=== PATIENT | male | born 1945 | race Caucasian/White ===

== ENCOUNTER 2020-06-08 18:16 | Observation (INO) | payer MEDICARE, OTHER ==
[2020-06-08] MEDS ORDERED: Aspirin 325 MG TAB PO SCH (21:30)
[2020-06-08 22:30] LABS: CKMB 3.4 ng/mL (0-6.6)
[2020-06-08 23:33] VITALS: BMI 16.2
[2020-06-09] MEDS ORDERED: Dextrose 5% in Water 1,000 ML IV PRN (00:14)
[2020-06-09] MEDS ORDERED: Acetaminophen 500 MG TAB PO PRN (00:14)
[2020-06-09] MEDS ORDERED: HumaLOG 300 UNITS/3 ML VIAL SC PRN ×2 (00:14)
[2020-06-09] MEDS ORDERED: Ibuprofen 200 MG TAB PO PRN (00:14)
[2020-06-09] MEDS ORDERED: Ondansetron PF 4 MG/2 ML Vial IVP PRN (00:14)
[2020-06-09] MEDS ORDERED: Labetalol HCl 100 MG/20 ML VIAL SLOW IVP PRN (00:14)
[2020-06-09] MEDS ORDERED: Ondansetron ODT 4 MG TAB PO PRN (00:14)
[2020-06-09] MEDS ORDERED: Dextrose 50% Abboject 50 ML SYRINGE SLOW IVP PRN (00:14)
--- NOTE | 2020-06-09 01:38 | HP ---
PRIMARY CARE PROVIDER: Gutierrez Francisco MD CHIEF COMPLAINT: Mechanical fall with chest pain. HISTORY OF PRESENT ILLNESS: This is a 75-year-old male, who presents to [facility] Emergency Department in transfer from [facility] after apparently falling off the back of his truck tool box while working out in the field. The patient states he was attempting to cut some limbs and got up on the back of his truck when he lost his footing and fell to the ground. The patient had initially complained of chest, knee, and back pain, but denied any loss of consciousness or lacerations. Review of the electronic medical record from [facility] had a question of chest pain prior to the fall; however, the patient does not endorse this. The patient does complain of some chest and back discomfort currently, but overall says he has no specific symptoms other than the Zambrano catheter that was inserted is irritating him. The patient denied any known history of coronary artery disease and states he takes aspirin on a daily basis. 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 The patient denied any shortness of breath, fever, cough, or congestion. The patient does admit to using smokeless tobacco for many years. In the emergency room, the patient underwent extensive evaluation including multiple imaging studies showing no acute process. Troponin I was initially negative x2 with the third value increasing to 0.066. The patient was referred to the Hospitalist Service for further evaluation. PAST MEDICAL HISTORY: 1. Hypertension. 2. Hyperlipidemia. 3. Diabetes mellitus type 2. 4. Smokeless tobacco use. 5. History of colon cancer. 6. Gastroesophageal reflux disease. 7. Cataracts. PAST SURGICAL HISTORY: 1. Status post hernia repair. 2. Status post bowel resection secondary to colon cancer. 3. Status post bilateral cataract removal. CURRENT MEDICATIONS: 1. Lisinopril 2.5 mg p.o. daily. 2. Enteric-coated aspirin 81 mg p.o. daily. 3. Omeprazole 40 mg p.o. daily. 4. Atorvastatin 40 mg p.o. daily. 5. Metformin 1000 mg p.o. b.i.d. 6. Vitamin D3 2000 units p.o. daily. ALLERGIES: TO PENICILLIN. FAMILY HISTORY: Positive for hypertension. SOCIAL HISTORY: Resides in [place], [place]. Uses smokeless tobacco daily. No alcohol or illicit drug use. Functional of all activities of daily living. REVIEW OF SYSTEMS: CONSTITUTIONAL: Negative for weight loss or gain, ability to conduct usual activities. SKIN: Negative for rash, itching. EYES: Negative for double vision, pain. ENT/MOUTH: Negative for nose bleeding, neck stiffness, pain, tenderness. CARDIOVASCULAR: Negative for palpitations, dyspnea on exertion, orthopnea. RESPIRATORY: Negative for shortness of breath, wheezing, cough, hemoptysis, fever or night sweats. GASTROINTESTINAL: Negative for poor appetite, abdominal pain, heartburn, nausea, vomiting, constipation, or diarrhea. GENITOURINARY: Negative for urgency, frequency, dysuria, nocturia. MUSCULOSKELETAL: Negative for pain, swelling. NEUROLOGIC/PSYCHIATRIC: Negative for anxiety, depression. ALLERGY/IMMUNOLOGIC: Negative for skin rash, bleeding tendency. Otherwise negative except as stated per HPI. PHYSICAL EXAMINATION: VITAL SIGNS: Blood pressure 153/85, pulse 83, respiratory rate 18, temperature 99.1 degrees Fahrenheit, O2 saturation 100% on room air. GENERAL APPEARANCE: This is a 75-year-old male, alert and oriented x3, pleasant, responsive, in no acute distress. HEENT: Pupils are equal, round, reactive to light and accommodation. Extraocular muscles are intact. Scalp atraumatic. Nares patent. OP is clear. Nicotine staining to all teeth. NECK: Supple. No cervical adenopathy. No thyromegaly. No carotid bruits. No JVD appreciated. Cervical spine with full active and passive range of motion. No meningeal signs noted. CHEST: Lungs are clear to auscultation bilaterally. CARDIOVASCULAR: S1, S2 without noted murmur, rub, or gallop. ABDOMEN: Flat, soft, nontender, and nondistended. Bowel sounds are positive in all 4 quadrants. There is no hepatosplenomegaly. No abdominal bruits. No rebound or guarding appreciated. EXTREMITIES: Warm and dry with fair turgor. Quarter-sized ecchymosis/contusion of the right patellar region. No asymmetric edema noted. Pulses palpable distally at the dorsalis pedis, posterior tibial, and popliteal arteries bilaterally. Capillary refill less than 2 seconds. NEUROLOGIC: Cranial nerves II through XII are grossly intact. No focal or lateralizing signs appreciated. : Zambrano catheter in place with clear leyla urine. PERTINENT LABORATORY AND X-RAY FINDINGS: Basic metabolic profile within normal limits. Lactic acid level 1.6, calcium 9.0. LFTs within normal limits. Troponin I ranged between 0.010 to 0.066. TSH 1.55. CBC showed a white blood cell count of 10.8, hemoglobin 12, hematocrit 36, platelet count 219 with 78% neutrophils. Urinalysis showed trace blood with 4 to 6 rbc's per high-power field. EKG dated 06/08/2020, by my interpretation shows sinus mechanism, heart rates in the 80s. Normal R-wave progression noted in the precordial leads. Normal axis. No acute ST-T wave changes appreciated. CT brain/chest/abdomen/pelvis/C-spine all negative. ASSESSMENT AND PLAN: 1. Chest pain. The patient will be observed on the telemetry unit. Mild elevation of troponin I. We will continue serial cardiac biomarkers to monitor the overall trend. Proceed with Cardiolite stress testing in the a.m. to rule out underlying ischemia. Continue aspirin 325 mg daily. Check fasting lipid profile in the a.m. Suspect component of the patient's chest pain related to fall. 2. Urinary retention. Status post Zambrano catheter placement in the emergency room. Suspect, will remove Zambrano catheter in the a.m. 3. Diabetes mellitus type 2. Insulin sliding scale for reflexive coverage. Hold metformin pending Cardiolite stress testing. Serial Accu-Cheks before meals and at bedtime. ADA diet when tolerating p.o. intake. 4. Hypertension. Resume home blood pressure regimen and monitor clinical response. 5. Prophylaxis. SCDs while in bed. Pepcid 20 mg p.o. b.i.d. CODE STATUS: Full. Surrogate medical decision maker is the patient's sister. Job ID: [id number] MTDD
[2020-06-09 04:56] LABS: #Eosinphils 0.1 thou/uL (0.0-0.7); #Lymphocytes 1.5 thou/uL (1.20-3.40); #Monocytes 0.8 thou/uL (0.11-0.59); #Neutrophils 4.7 thou/uL (1.40-6.50); %Basophils 0.5 % (0.0-1.0); %Lymphocytes 21.2 % (21.0-51.0); %Monocytes 11.3 % (0.0-10.0); %Neutrophils 66.1 % (42.0-75.0); Hemoglobin 11.2 g/dL (14.0-18.0); Mean Corpuscular Hemoglobin 30.7 pg (27.0-31.0); Mean Corpuscular Volume 96.1 fL (78.0-98.0); Mean Platelet Volume 10.8 fL (7.4-10.4); Platelet Count 187 thou/uL (130-400); RBC Distribution Width 12.2 % (11.5-14.5); Red Blood Cell (RBC) Count 3.64 mill/uL (4.70-6.10); White Blood Cell (WBC) Count 7.1 thou/uL (4.8-10.8)
[2020-06-09 05:23] LABS: ALT (SGPT) 14 U/L (8-55); AST (SGOT) 14 U/L (5-34); Albumin 3.4 g/dL (3.4-4.8); Alkaline Phosphatase 115 U/L (40-110); Anion Gap 13 mmol/L (10-20); BUN (Urea Nitrogen) 13 mg/dL (8.4-25.7); Bilirubin, Total 0.3 mg/dL (0.2-1.2); Calc. Creatinine Clearance 59 mL/min (70-130); Calcium 8.8 mg/dL (7.8-10.44); Carbon Dioxide 27 mmol/L (23-31); Chloride 107 mmol/L (98-107); Cholesterol 112 mg/dl (< 200 Desired); Estimated GFR-MDRD Greater than 90; Globulin 2.4 g/dL (2.4-3.5); Glucose 177 mg/dL (83-110); HDL Cholesterol 56 mg/dL (>60 Neg Risk); LDL Cholesterol, Calculated 49 mg/dL; Potassium 3.8 mmol/L (3.5-5.1); Protein, Total 5.8 g/dL (5.8-8.1); Sodium 143 mmol/L (136-145); Triglycerides 34 mg/dL (Less than 150)
[2020-06-09] MEDS ORDERED: ADENOSINE 60 MG/20 ML VIAL ONE (08:32)
[2020-06-09] MEDS ORDERED: Famotidine 20 MG TAB PO SCH (09:00)
[2020-06-09] MEDS ORDERED: Cholecalciferol 1,000 UNITS (25 MCG) TAB PO SCH (09:00)
[2020-06-09] MEDS ORDERED: Aspirin 325 mg Enteric Coated Tablet PO SCH (09:00)
[2020-06-09] MEDS ORDERED: Lisinopril 2.5 MG TAB PO SCH (09:00)
[2020-06-09] MEDS ORDERED: Atorvastatin Calcium 40 MG TAB PO SCH (09:00)
--- NOTE | 2020-06-09 12:02 | NM ---
EXAM: NM Cardiac Stress W EF WF PROVIDED CLINICAL HISTORY: Chest pain. COMPARISON: 01/29/2011 FINDINGS: This examination was performed as a pharmacologic myocardial perfusion stress test after the administ ration of adenosine. There is no significant reversible defect seen between the stress and resting acquisitions. Gated chapis ges demonstrate minimal hypokinesis at the septum but otherwise normal wall motion and wall thickening. Calculated left ventricular ejection fraction is 71%. Calculated left ventricular ejectio n fraction on prior study in 2010 was 62%. IMPRESSION: 1. Normal myocardial perfusion study without evidence of a reversible defect seen to suggest ischemia . 2. Calculated LVEF of 71%.
[2020-06-09 13:42] LABS: Bacteria/HPF None Seen HPF (None Seen); Bilirubin Negative (Negative); Blood, Urine 1+ (Negative); Calcium Oxalate Crystals 3+ HPF (None Seen); Clarity Turbid (Clear); Glucose, Urine (Dipstick) 500 mg/dL (Negative); Ketone, Urine Negative (Negative); Leukocyte 75 Leu/uL (Negative); Nitrite Negative (Negative); Protein, Urine (Dipstick) 200 mg/dL (Neg-Trace); RBC/HPF 21-50 HPF (0-3); Specific Gravity, Urine 1.027 (1.002-1.036); Squamous Epithelial None Seen HPF (0-3); WBC/HPF 21-50 HPF (0-3)
[2020-06-09 13:44] LABS: Urine Culture Reflex Yes Yes
[2020-06-09] MEDS ORDERED: Ciprofloxacin 500 MG TAB PO SCH ×2 (15:00→20:00)
[2020-06-09 15:06] LABS: SARS-CoV-2 MS2 Positive; SARS-CoV-2 N Gene Negative; SARS-CoV-2 S Gene Negative; SARS-CoV-2 by NAA Not Detected (NotDetected); SARS-CoV-2 orf1ab Negative
[2020-06-09 15:33] VITALS: BP 144/72; TEMP 97.9
--- NOTE | 2020-06-10 12:05 | DIS ---
DATE OF ADMISSION: 06/08/2020 DATE OF DISCHARGE: 06/09/2020 DISCHARGE DIAGNOSES: 1. Chest pain, likely secondary to musculoskeletal pain from a fall. 2. Anemia. 3. Type 2 [id number] myocardial infarction. CONSULTATIONS: None. PROCEDURES: None. BRIEF HPI: This is a 75-year-old male, who presented as a transfer from [place] [facility] after falling off the back of his truck. He complained of some chest pain, knee pain, and back pain. The pain was persistent until the patient came to the emergency room and then resolved. The patient's third troponin had increased to 0.066, so the patient was transferred here for hospitalist service. HOSPITAL COURSE: Chest pain: The patient underwent nuclear stress test, which was normal. He had an echocardiogram done due to elevated troponins, which was normal. The patient's pain resolved. He ambulated without any chest pain. He should follow up with his PCP for further workup. History of urinary retention: The patient states that he has had recurrent problems with urinary retention. While in the hospital, a Zambrano catheter ended up being placed secondary to this. UA was sent, which appeared to show turbid urine with 75 leukocyte esterase and 21-50 white blood cells. Urine culture was normal. The patient was started on ciprofloxacin and was prescribed a 7-day course of antibiotics. He was also discharged with Flomax. The patient did not want to have the Zambrano catheter removed for a voiding trial due to the amount of pain he experiences while placing it. He elected to be discharged with a Zambrano catheter. He was advised him to follow up with the urologist in [place] of his choice. DISCHARGE PHYSICAL EXAMINATION: VITAL SIGNS: Temperature 97.9, heart rate 70, respiratory rate 16, O2 saturation 98% on room air, and blood pressure 144/72. GENERAL: The patient is alert, awake, oriented x3. CVS: Regular rate and rhythm with no murmurs, rubs, or gallops. LUNGS: Clear to auscultation bilaterally. ABDOMEN: Positive bowel sounds, soft, nontender, nondistended. EXTREMITIES: No edema. : Zambrano catheter in place. LABORATORY DATA: CBC 06/09: White count 7.1, hemoglobin 11.2, hematocrit 34.9, platelet count 187. BMP 06/09: Normal. Troponin I: Peaked at 0.066. Lipid panel 06/09: Total cholesterol 112, LDL 49, HDL 56. UA 06/09: Turbid urine, 200 protein, 75 leukocyte esterase, 21-50 white blood cells, 3+ calcium oxalate crystals. COVID PCR serology 06/09: Negative. IMAGING: Nuclear stress test 06/09: Unremarkable. Echo 06/09: EF 55% to 60%. Mild TR. Otherwise, unremarkable. DISCHARGE CONDITION: Stable. ACTIVITY: As tolerated. DIET: Heart healthy diet. DISCHARGE MEDICATIONS: 1. Cipro 500 mg p.o. b.i.d. 2. Flomax 0.4 mg p.o. daily. All other home medications were resumed. Please refer to discharge worksheet. DISCHARGE INSTRUCTIONS: The patient to follow up with PCP in a week. He should follow up with his urologist of his choice and consider voiding trial with a Zambrano catheter. Also consider repeat CBC to further work up anemia. Job ID: [id number] MTDD
== END 2020-06-09 16:11 | disposition home or self-care (01) ==
LOC: 2SW 18:16
PROVIDERS: ADMIT Student in an Organized Health Care Education/Training Program; ATTEND Student in an Organized Health Care Education/Training Program
DX: R07.9 Chest pain, unspecified (principal); I21.A1 Myocardial infarction type 2; D64.9 Anemia, unspecified; I10 Essential (primary) hypertension; E11.9 Type 2 diabetes mellitus without complications; E78.5 Hyperlipidemia, unspecified; F17.290 Nicotine dependence, other tobacco product, uncomplicated; Z79.84 Long term (current) use of oral hypoglycemic drugs; Z79.899 Other long term (current) drug therapy; Z85.038 Personal history of other malignant neoplasm of large intestine; Z88.0 Allergy status to penicillin; Z20.828 Contact with and (suspected) exposure to other viral communicable diseases; V58.4XXA Person boarding or alighting a pick-up truck or van injured in noncollision transport accident, initial encounter
CPT/HCPCS: 78452; 80053; 80061; 81001; 82553; 82962; 84484 ×2; 85025; 87086; 93017; 93306; 94760; A9500; G0378; U0003; 36415; 36416; 87635; J0153

== ENCOUNTER 2020-08-14 07:23 | Outpatient (CLI) | payer MEDICARE, OTHER ==
[2020-08-14 13:12] LABS: Bilirubin Neg (Negative); Blood, Urine 10 (Negative); Clarity Clear (Clear); Glucose, Urine (Dipstick) Normal (Negative); Ketone, Urine 50 mg/dL (Negative); Leukocyte 100 (Negative); Nitrite Negative (Negative); Protein, Urine (Dipstick) 30 mg/dl (Neg-Trace); Specific Gravity, Urine 1.025 (1.002-1.036); Urobilinogen Normal mg/dL (Less than 2)
[2020-08-14 13:19] LABS: Hemoglobin 11.7 g/dL (14.0-18.0); Mean Corpuscular HGB CONC 31.8 G/DL (32.0-36.0); Mean Corpuscular Hemoglobin 29.5 PG (27.0-33.0); Mean Corpuscular Volume 92.7 fl (80.0-100.0); Mean Platelet Volume 13.2 fl (7.4-10.4); Platelet Count 240 10x3/uL (130-400); RBC Distribution Width 12.8 % (11.5-14.5); Red Blood Cell (RBC) Count 3.97 10x6/uL (4.40-5.80); White Blood Cell (WBC) Count 6.3 10x3/uL (4.5-11.0)
[2020-08-14 13:24] LABS: Anion Gap 18 mmol/L (10-20); BUN (Urea Nitrogen) 19 mg/dL (8.4-25.7); Calc. Creatinine Clearance 0 mL/min (70-130); Calcium 9.1 mg/dL (7.8-10.44); Carbon Dioxide 25 mmol/L (23-31); Chloride 101 mmol/L (98-107); Glucose 169 mg/dL (83-110); Sodium 140 mmol/L (136-145)
[2020-08-14 13:38] LABS: RBC/HPF 0-3 HPF (0-3)
[2020-08-14 13:39] LABS: Bacteria/HPF None Seen HPF (None Seen); Mucous/LPF 1+ LPF (<2+); Squamous Epithelial 0-3 HPF (0-3)
[2020-08-14 13:40] LABS: Calcium Oxalate Crystals Rare HPF (None Seen); PTT 30.2 sec (22.0-33.0); Prothrombin Time 10.7 sec (9.5-12.1)
--- NOTE | 2020-08-14 16:18 | EKG ---
Test Reason : Blood Pressure : / mmHG Vent. Rate : 085 BPM Atrial Rate : 085 BPM P-R Int : 136 ms QRS Dur : 076 ms QT Int : 360 ms P-R-T Axes : 087 077 075 degrees QTc Int : 428 ms Normal sinus rhythm Possible Left atrial enlargement Borderline ECG No previous ECGs available Confirmed by DR. Ann-Marie BALLARD ([id number]) on 08/14/2020 4:18:04 PM Referred By: Nico LEROY Confirmed By:DR. Ann-Marie BALLARD
[2020-08-14 22:26] LABS: SARS-CoV-2 MS2 Positive; SARS-CoV-2 N Gene Negative; SARS-CoV-2 S Gene Negative; SARS-CoV-2 by NAA Not Detected (NotDetected); SARS-CoV-2 orf1ab Negative
== END 2020-08-14 07:24 | disposition home or self-care (01) ==
LOC: LABBT 07:23
PROVIDERS: ATTEND Urology
DX: Z01.818 Encounter for other preprocedural examination (principal); Z01.812 Encounter for preprocedural laboratory examination; Z20.828 Contact with and (suspected) exposure to other viral communicable diseases; N40.1 Benign prostatic hyperplasia with lower urinary tract symptoms; E11.9 Type 2 diabetes mellitus without complications; R39.14 Feeling of incomplete bladder emptying; R31.29 Other microscopic hematuria; R81 Glycosuria; R80.9 Proteinuria, unspecified; I21.4 Non-ST elevation (NSTEMI) myocardial infarction; Z87.898 Personal history of other specified conditions
CPT/HCPCS: 80048; 81001; 85027; 85610; 85730; 87086; 93005; U0003; 87635; 93010

== ENCOUNTER 2020-08-19 06:01 | Day surgery (SDC) | payer MEDICARE, OTHER ==
[2020-08-19] MEDS ORDERED: Levofloxacin 500 mg/D5W 100 ml Premix Bag ONE (06:53)
[2020-08-19] MEDS ORDERED: Fentanyl 100 MCG/2 ML VIAL ONE (07:10)
[2020-08-19] MEDS ORDERED: HYDROcodone/Acetaminophen 5/325 mg Tablet ONE (08:51)
[2020-08-19] MEDS ORDERED: PROPOFOL 200 MG/20 ML VIAL ONE (09:07)
[2020-08-19] MEDS ORDERED: Lidocaine 1% PF 5 ML VIAL ONE (09:07)
--- NOTE | 2020-08-19 09:33 | OP ---
DATE OF PROCEDURE: 08/19/2020 PREOPERATIVE DIAGNOSES: A 75-year-old male with: 1. History of urinary retention, PVR of 808 mL. 2. Benign prostatic hyperplasia with IPSS score of 26. POSTOPERATIVE DIAGNOSES: A 75-year-old male with: 1. History of urinary retention, PVR of 808 mL. 2. Benign prostatic hyperplasia with IPSS score of 26. PROCEDURES PERFORMED: 1. Cystoscopy. 2. UroLift implant x5. ANESTHESIA: TIVA. COMPLICATIONS: None apparent. ESTIMATED BLOOD LOSS: Minimal to none. DISPOSITION: To recovery room in stable condition. INDICATIONS FOR PROCEDURE AND HISTORY: Mr. Spann is a 75-year-old male, with history of recurrent urinary retention, largest PVR of 808 mL. He has been on dual medical therapy, Flomax b.i.d., and presents today for cystoscopy and UroLift. He underwent appropriate workup with cystoscopy, volume study in my office and presents for above. He has been fully informed regarding options of transurethral resection of prostate, UroLift. Risks and complications of the procedure were reviewed with him in detail including, but not limited to, bleeding; pain, infection, injury to adjacent organs, ureteral and bladder injury, stricture formation, possible escalating to more definitive treatment was discussed with him in detail. DESCRIPTION OF PROCEDURE: After an informed consent was signed, the patient was taken to the operating room and placed in a dorsal lithotomy position with the genital area prepped and draped in the usual surgical sterile fashion. A 21- Bulgarian cystoscope was utilized for cystoscopy, demonstrating severe bilobar hyperplasia of the prostate. There was no obvious intravesical median lobe; however, with retroflexion in my office, cystoscopy demonstrated protuberance of the bladder neck, consistent with trigonal elevation. The UOs are very close to the bladder neck and they were kept out of harm's way. Exam under anesthesia today demonstrated that he may have undergone previous TUR by previous urologist, Dr. Barrow, as his bladder neck demonstrated changes consistent with TUR. However, he does have obstructing lateral lobes. At this time, we transitioned to the UroLift device and cystoscope with a visual obturator. We placed a total of 3 implants on the left, 2 on the right lobe. At the end of the procedure, he had a nice anterior channel created. There was a small component of residual adenoma at the bladder neck protruding; however, this was not obstructing, and moreover, it was too close to the bladder neck for me to place a safe implant at this level as there was concern regarding bladder neck implant. In addition, with 5 implants, he has a wide anterior channel with an open bladder neck. An 18-Bulgarian 30 mL Zambrano catheter was placed, gravity tubing attached. I will monitor for degree of hematuria. Pending disposition, he will either be provided a voiding trial and discharged with an indwelling Zambrano. He is to continue his BPH medications, refill for Flomax provided, will see me tomorrow. Job ID: [id number] MTDD
[2020-08-19] MEDS ORDERED: Phenazopyridine HCl 100 MG TAB ONE (10:59)
== END 2020-08-19 14:00 | disposition home or self-care (01) ==
LOC: SDC 06:01
PROVIDERS: ATTEND Urology
PROC: 0T7D8DZ Dilation of Urethra with Intraluminal Device, Via Natural or Artificial Opening Endoscopic (ICD-10-PCS; principal; 2020-08-19)
DX: N40.1 Benign prostatic hyperplasia with lower urinary tract symptoms (principal); R33.8 Other retention of urine; R39.14 Feeling of incomplete bladder emptying; R31.29 Other microscopic hematuria; M19.90 Unspecified osteoarthritis, unspecified site; G89.29 Other chronic pain; E11.9 Type 2 diabetes mellitus without complications; I10 Essential (primary) hypertension; F03.90 Unspecified dementia, unspecified severity, without behavioral disturbance, psychotic disturbance, mood disturbance, and anxiety; I25.2 Old myocardial infarction; Z79.2 Long term (current) use of antibiotics; Z79.82 Long term (current) use of aspirin; Z79.84 Long term (current) use of oral hypoglycemic drugs; Z79.899 Other long term (current) drug therapy; Z88.0 Allergy status to penicillin
CPT/HCPCS: 82962; C1889; C9740; 36416; J1956; J2704; J3010

== ENCOUNTER 2021-01-21 11:48 | Outpatient (CLI) | payer MEDICARE, OTHER | END 2021-01-21 11:49 | disposition home or self-care (01) | LOC: LABBT 11:48 | PROVIDERS: ATTEND Urology | DX: Z01.818 Encounter for other preprocedural examination (principal); N40.1 Benign prostatic hyperplasia with lower urinary tract symptoms; E11.9 Type 2 diabetes mellitus without complications; R39.14 Feeling of incomplete bladder emptying; R31.29 Other microscopic hematuria; R80.9 Proteinuria, unspecified; R81 Glycosuria; I21.4 Non-ST elevation (NSTEMI) myocardial infarction; R30.0 Dysuria; Z20.822 Contact with and (suspected) exposure to COVID-19; Z87.898 Personal history of other specified conditions | CPT/HCPCS: 80048; 81001; 85027; 85610; 85730; 86850; 86900; 86901; 87086; 93005; U0003; U0005; 87635; 93010 ==

== ENCOUNTER 2021-01-25 05:59 | Inpatient (IN) | payer MEDICARE, OTHER ==
[2021-01-21 13:19] LABS: Bilirubin Neg (Negative); Blood, Urine 25 (Negative); Glucose, Urine (Dipstick) Normal (Negative); Ketone, Urine Negative (Negative); Leukocyte 500 (Negative); Nitrite Negative (Negative); Protein, Urine (Dipstick) 100 mg/dl (Neg-Trace); Urobilinogen Normal mg/dL (Less than 2)
[2021-01-21 13:27] LABS: Clarity Hazy (Clear)
[2021-01-21 13:28] LABS: RBC/HPF 0-3 HPF (0-3); Squamous Epithelial 0-3 HPF (0-3); WBC/HPF 21-50 HPF (0-3)
[2021-01-21 13:29] LABS: Bacteria/HPF Rare-Few HPF (None Seen)
[2021-01-21 13:42] LABS: Anion Gap 15 mmol/L (10-20); BUN (Urea Nitrogen) 10 mg/dL (8.4-25.7); Calc. Creatinine Clearance 0 mL/min (70-130); Calcium 9.2 mg/dL (7.8-10.44); Carbon Dioxide 25 mmol/L (23-31); Chloride 103 mmol/L (98-107); Glucose 102 mg/dL (83-110); Potassium 4.5 mmol/L (3.5-5.1); Sodium 138 mmol/L (136-145)
[2021-01-21 14:20] LABS: INR-International Normal Ratio 1.1; PTT 28.5 sec (22.0-33.0); Prothrombin Time 11.6 sec (9.5-12.1)
[2021-01-21 14:53] LABS: Hemoglobin 11.5 g/dL (13.5-17.5); Mean Corpuscular HGB CONC 31.4 g/dL (32.0-36.0); Mean Corpuscular Hemoglobin 29.3 pg (27.0-33.0); Mean Corpuscular Volume 93.1 fl (81.2-95.1); Platelet Count 207 10x3/uL (150-450); RBC Distribution Width 13.4 % (11.5-14.5); Red Blood Cell (RBC) Count 3.93 10x6/uL (4.32-5.72)
[2021-01-21 22:03] LABS: SARS-CoV-2 PCR by NAA Not Detected (NotDetected)
[2021-01-25] MEDS ORDERED: Levofloxacin 500 mg/D5W 100 ml Premix Bag ONE (07:36)
[2021-01-25] MEDS ORDERED: Fentanyl 100 MCG/2 ML VIAL ONE ×2 (10:07→12:27)
[2021-01-25] MEDS ORDERED: Ondansetron PF 4 MG/2 ML Vial ONE ×2 (10:19→13:26)
[2021-01-25] MEDS ORDERED: PHENYLEPHRINE-NS 100 MCG/ML 10 ML SYRINGE ONE (10:19)
[2021-01-25] MEDS ORDERED: Lidocaine 1% PF 5 ML VIAL ONE (10:19)
[2021-01-25] MEDS ORDERED: Dexamethasone 20 MG/5 ML VIAL ONE (10:19)
[2021-01-25] MEDS ORDERED: Glycopyrrolate 0.2 MG/ML 5 ML SYRINGE ONE (10:19)
[2021-01-25] MEDS ORDERED: Rocuronium Bromide 10 MG/ML (10ML VIAL) ONE (10:19)
[2021-01-25] MEDS ORDERED: PROPOFOL 200 MG/20 ML VIAL ONE (10:19)
[2021-01-25] MEDS ORDERED: ePHEDrine Sulfate 50 MG/10 ML VIAL ONE (10:19)
[2021-01-25] MEDS ORDERED: Iothalamate Meglumine 60% 50 ML VIAL FS ONE ×2 (11:10→11:18)
[2021-01-25] MEDS ORDERED: Dextrose 50% Abboject 50 ML SYRINGE SLOW IVP PRN (12:19)
[2021-01-25] MEDS ORDERED: hydrALAZINE 20 MG/ML VIAL SLOW IVP PRN (12:19)
[2021-01-25] MEDS ORDERED: HYDROcodone/Acetaminophen 5/325 mg Tablet PO PRN ×2 (12:19)
[2021-01-25] MEDS ORDERED: Dextrose 5% in Water 1,000 ML IV PRN (12:19)
[2021-01-25] MEDS ORDERED: Phenazopyridine HCl 97.5 MG TABLET PO PRN (12:19)
[2021-01-25] MEDS ORDERED: Bisacodyl 10 MG SUPP PR PRN (12:19)
[2021-01-25] MEDS ORDERED: Insulin Regular 300 UNITS/3 ML VIAL SC PRN (12:19)
[2021-01-25] MEDS ORDERED: Ondansetron PF 4 MG/2 ML Vial IVP PRN (12:19)
[2021-01-25] MEDS ORDERED: diphenhydrAMINE 50 MG/ML VIAL IVP PRN (12:19)
[2021-01-25] MEDS ORDERED: Morphine 4 MG/ML VIAL SLOW IVP PRN ×2 (12:19→12:45)
[2021-01-25] MEDS ORDERED: Tamsulosin HCl 0.4 MG CAP ONE (12:55)
[2021-01-25] MEDS ORDERED: Phenazopyridine HCl 100 MG TAB ONE (13:00)
[2021-01-25 13:05] LABS: #Basophils 0.1 thou/uL (0.0-0.2); #Eosinphils 0.2 thou/uL (0.0-0.7); #Lymphocytes 1.5 thou/uL (1.20-3.40); #Monocytes 0.2 thou/uL (0.11-0.59); #Neutrophils 6.8 thou/uL (1.40-6.50); %Basophils 0.6 % (0.0-1.0); %Eosinophils 1.8 % (0.0-10.0); %Lymphocytes 17.5 % (21.0-51.0); %Monocytes 2.3 % (0.0-10.0); %Neutrophils 77.9 % (42.0-75.0); Hemoglobin 10.7 g/dL (14.0-18.0); Mean Corpuscular HGB CONC 32.5 g/dL (32.0-36.0); Mean Corpuscular Hemoglobin 30.4 pg (27.0-31.0); Mean Corpuscular Volume 93.6 fL (78.0-98.0); Mean Platelet Volume 10.4 fL (7.4-10.4); Platelet Count 163 thou/uL (130-400); RBC Distribution Width 12.5 % (11.5-14.5); Red Blood Cell (RBC) Count 3.53 mill/uL (4.70-6.10); White Blood Cell (WBC) Count 8.7 thou/uL (4.8-10.8)
[2021-01-25 13:25] LABS: Anion Gap 13 mmol/L (10-20); BUN (Urea Nitrogen) 10 mg/dL (8.4-25.7); Calc. Creatinine Clearance 73 mL/min (70-130); Calcium 8.2 mg/dL (7.8-10.44); Carbon Dioxide 28 mmol/L (23-31); Chloride 102 mmol/L (98-107); Glucose 153 mg/dL (83-110); Potassium 3.6 mmol/L (3.5-5.1); Sodium 139 mmol/L (136-145)
[2021-01-25] MEDS: Sodium Chloride 0.9% 1,000 ML IV SCH (16:45)
[2021-01-25] MEDS: metFORMIN XR 500 MG TAB PO SCH (16:45)
[2021-01-25 16:57] VITALS: BMI 19.8
[2021-01-25] MEDS: Famotidine/PF 20 mg/2ml Vial SLOW IVP SCH (20:07)
[2021-01-25] MEDS: Docusate 100 MG CAP PO SCH (20:07)
[2021-01-25] MEDS: Atorvastatin Calcium 40 MG TAB PO SCH (20:11)
[2021-01-25] MEDS: Dutasteride 0.5 MG CAP PO SCH (20:11)
[2021-01-25] MEDS: Mag-Al 1200 mg/1200 mg/30 ML UDCUP PO PRN (22:35)
[2021-01-26] MEDS: Mag-Al 1200 mg/1200 mg/30 ML UDCUP PO PRN (05:12)
[2021-01-26] MEDS: Sodium Chloride 0.9% 1,000 ML IV SCH ×3 (05:30→23:00)
[2021-01-26 05:59] LABS: #Lymphocytes 1.1 thou/uL (1.20-3.40); #Monocytes 0.9 thou/uL (0.11-0.59); #Neutrophils 10.2 thou/uL (1.40-6.50); %Basophils 0.1 % (0.0-1.0); %Eosinophils 0.2 % (0.0-10.0); %Lymphocytes 9.3 % (21.0-51.0); %Monocytes 7.6 % (0.0-10.0); %Neutrophils 82.9 % (42.0-75.0); Hemoglobin 10.5 g/dL (14.0-18.0); Mean Corpuscular HGB CONC 32.5 g/dL (32.0-36.0); Mean Corpuscular Hemoglobin 30.3 pg (27.0-31.0); Mean Corpuscular Volume 93.2 fL (78.0-98.0); Mean Platelet Volume 11.5 fL (7.4-10.4); Platelet Count 171 thou/uL (130-400); RBC Distribution Width 12.6 % (11.5-14.5); Red Blood Cell (RBC) Count 3.48 mill/uL (4.70-6.10); White Blood Cell (WBC) Count 12.3 thou/uL (4.8-10.8)
[2021-01-26 06:08] LABS: Anion Gap 18 mmol/L (10-20); BUN (Urea Nitrogen) 13 mg/dL (8.4-25.7); Calc. Creatinine Clearance 69 mL/min (70-130); Calcium 8.1 mg/dL (7.8-10.44); Carbon Dioxide 23 mmol/L (23-31); Chloride 98 mmol/L (98-107); Glucose 129 mg/dL (83-110); Potassium 4.2 mmol/L (3.5-5.1); Sodium 135 mmol/L (136-145)
[2021-01-26 06:20] LABS: Troponin I 0.016 ng/mL (< 0.028)
[2021-01-26] MEDS: metFORMIN XR 500 MG TAB PO SCH ×2 (08:39→16:32)
[2021-01-26] MEDS: Aspirin 81 mg Enteric Coated Tablet PO SCH (08:39)
[2021-01-26] MEDS: Multivit, Therapeutic 1 TAB PO SCH (08:39)
[2021-01-26] MEDS: Docusate 100 MG CAP PO SCH ×2 (08:40→20:45)
[2021-01-26] MEDS: Cholecalciferol 1,000 UNITS (25 MCG) TAB PO SCH (08:40)
[2021-01-26] MEDS: Famotidine/PF 20 mg/2ml Vial SLOW IVP SCH ×2 (08:40→20:45)
[2021-01-26] MEDS ORDERED: Tamsulosin HCl 0.4 MG CAP PO SCH ×2 (09:00)
[2021-01-26 09:58] LABS: Troponin I 0.015 ng/mL (< 0.028)
[2021-01-26] MEDS: Dutasteride 0.5 MG CAP PO SCH (20:45)
[2021-01-26] MEDS: Atorvastatin Calcium 40 MG TAB PO SCH (20:45)
[2021-01-27] MEDS: Nitroglycerin 0.4 MG TAB (25 Tab Bottle) SL PRN ×2 (07:23→07:30)
[2021-01-27] MEDS: metFORMIN XR 500 MG TAB PO SCH ×2 (07:32→16:31)
[2021-01-27 07:58] LABS: Hemoglobin 10.2 g/dL (14.0-18.0); Mean Corpuscular HGB CONC 31.9 g/dL (32.0-36.0); Mean Corpuscular Hemoglobin 29.7 pg (27.0-31.0); Mean Corpuscular Volume 93.1 fL (78.0-98.0); Mean Platelet Volume 10.6 fL (7.4-10.4); Platelet Count 147 thou/uL (130-400); RBC Distribution Width 12.6 % (11.5-14.5); Red Blood Cell (RBC) Count 3.44 mill/uL (4.70-6.10)
[2021-01-27 08:12] LABS: Anion Gap 10 mmol/L (10-20); BUN (Urea Nitrogen) 12 mg/dL (8.4-25.7); Calc. Creatinine Clearance 76 mL/min (70-130); Calcium 7.9 mg/dL (7.8-10.44); Carbon Dioxide 29 mmol/L (23-31); Chloride 105 mmol/L (98-107); Glucose 97 mg/dL (83-110); Potassium 3.7 mmol/L (3.5-5.1); Sodium 140 mmol/L (136-145)
[2021-01-27 08:19] LABS: Troponin I Less than 0.010 ng/mL (< 0.028)
[2021-01-27] MEDS: Cholecalciferol 1,000 UNITS (25 MCG) TAB PO SCH (08:58)
[2021-01-27] MEDS: Aspirin 81 mg Enteric Coated Tablet PO SCH (08:58)
[2021-01-27] MEDS: Docusate 100 MG CAP PO SCH ×2 (08:58→22:51)
[2021-01-27] MEDS: Multivit, Therapeutic 1 TAB PO SCH (08:58)
[2021-01-27] MEDS: Famotidine/PF 20 mg/2ml Vial SLOW IVP SCH ×2 (08:59→22:51)
[2021-01-27] MEDS: Nitroglycerin 2% Ointment 1 INCH/1 GM Packet TOP SCH ×3 (09:00→22:53)
[2021-01-27] MEDS: Mag-Al 1200 mg/1200 mg/30 ML UDCUP PO PRN (14:56)
[2021-01-27] MEDS ORDERED: Communication Order-Pharmacy FS SCH (17:30)
[2021-01-27] MEDS: Atorvastatin Calcium 40 MG TAB PO SCH (22:51)
[2021-01-27] MEDS: Dutasteride 0.5 MG CAP PO SCH (22:51)
[2021-01-28 05:15] LABS: Hemoglobin 10.6 g/dL (14.0-18.0); Mean Corpuscular HGB CONC 33.3 g/dL (32.0-36.0); Mean Corpuscular Hemoglobin 30.8 pg (27.0-31.0); Mean Corpuscular Volume 92.7 fL (78.0-98.0); Mean Platelet Volume 11.1 fL (7.4-10.4); Platelet Count 152 thou/uL (130-400); RBC Distribution Width 12.4 % (11.5-14.5); Red Blood Cell (RBC) Count 3.45 mill/uL (4.70-6.10); White Blood Cell (WBC) Count 7.1 thou/uL (4.8-10.8)
[2021-01-28 05:29] LABS: Anion Gap 11 mmol/L (10-20); BUN (Urea Nitrogen) 10 mg/dL (8.4-25.7); Calc. Creatinine Clearance 79 mL/min (70-130); Calcium 8.2 mg/dL (7.8-10.44); Carbon Dioxide 29 mmol/L (23-31); Chloride 104 mmol/L (98-107); Glucose 109 mg/dL (83-110); Potassium 3.6 mmol/L (3.5-5.1); Sodium 140 mmol/L (136-145)
[2021-01-28] MEDS: Cholecalciferol 1,000 UNITS (25 MCG) TAB PO SCH (05:42)
[2021-01-28] MEDS: Famotidine/PF 20 mg/2ml Vial SLOW IVP SCH (05:42)
[2021-01-28] MEDS: Sodium Chloride 0.9% 1,000 ML IV SCH ×2 (05:42→16:19)
[2021-01-28] MEDS: Aspirin 81 mg Enteric Coated Tablet PO SCH (05:43)
[2021-01-28] MEDS: Multivit, Therapeutic 1 TAB PO SCH (05:43)
[2021-01-28] MEDS ORDERED: Lidocaine 1% (PF) 30 ML VIAL ONE (06:39)
[2021-01-28] MEDS ORDERED: Fentanyl 100 MCG/2 ML VIAL ONE (09:26)
[2021-01-28] MEDS ORDERED: Midazolam HCl 2 mg/2 ml Vial ONE (09:27)
[2021-01-28] MEDS ORDERED: Sodium Chloride 0.9% 200 ML IV PRN (10:07)
[2021-01-28] MEDS ORDERED: Nitroglycerin 0.4 MG TAB (25 Tab Bottle) SL PRN (10:07)
[2021-01-28] MEDS ORDERED: Acetaminophen/Codeine 30-300mg Tablet PO PRN ×2 (10:07)
[2021-01-28] MEDS: Nitroglycerin 2% Ointment 1 INCH/1 GM Packet TOP SCH (10:56)
[2021-01-28] MEDS: Docusate 100 MG CAP PO SCH (10:58)
[2021-01-28] MEDS: metFORMIN XR 500 MG TAB PO SCH (11:49)
[2021-01-28] MEDS ORDERED: Iopamidol 370 76% 100 ML VIAL ONE (12:29)
[2021-01-28 16:02] VITALS: BP 145/71; TEMP 98.5
== END 2021-01-28 17:00 | disposition home or self-care (01) | DRG 714 ==
LOC: SDC 05:59 → SURG A 12:27 → OBSVTOIN 01-26 12:07 → 2NO 01-27 17:20
PROVIDERS: ADMIT Urology; ATTEND Urology
PROC: 0VB08ZZ Excision of Prostate, Via Natural or Artificial Opening Endoscopic (ICD-10-PCS; principal; 2021-01-25)
PROC: 0TP Urinary System, Removal (ICD-10-PCS; 2021-01-25)
PROC: BT1FZZZ Fluoroscopy of Left Kidney, Ureter and Bladder (ICD-10-PCS; 2021-01-25)
PROC: 3E1K78Z Irrigation of Genitourinary Tract using Irrigating Substance, Via Natural or Artificial Opening (ICD-10-PCS; 2021-01-25)
PROC: 4A023N7 Measurement of Cardiac Sampling and Pressure, Left Heart, Percutaneous Approach (ICD-10-PCS; 2021-01-28)
PROC: B2111ZZ Fluoroscopy of Multiple Coronary Arteries using Low Osmolar Contrast (ICD-10-PCS; 2021-01-28)
PROC: B2151ZZ Fluoroscopy of Left Heart using Low Osmolar Contrast (ICD-10-PCS; 2021-01-28)
DX: N40.1 Benign prostatic hyperplasia with lower urinary tract symptoms (principal); R33.8 Other retention of urine; K21.9 Gastro-esophageal reflux disease without esophagitis; Z20.822 Contact with and (suspected) exposure to COVID-19; E78.5 Hyperlipidemia, unspecified; E11.9 Type 2 diabetes mellitus without complications; M19.90 Unspecified osteoarthritis, unspecified site; E03.9 Hypothyroidism, unspecified; R77.8 Other specified abnormalities of plasma proteins; R07.89 Other chest pain; Z88.0 Allergy status to penicillin; I25.2 Old myocardial infarction; Z79.899 Other long term (current) drug therapy; Z79.84 Long term (current) use of oral hypoglycemic drugs; Z79.82 Long term (current) use of aspirin
CPT/HCPCS: 36415; 36416; 71046; 74420; 76942; 80048; 81001; 84484; 85025; 85027; 85610; 85730; 86850; 86900; 86901; 87086; 87635; 88300; 88305; 93005; 93010; 93458; 96374; 96375; 96376; G0378; J1100; J1956; J2001; J2250; J2270; J2405; J2704; J3010; Q9961; Q9967; S0028; U0003; U0005

== ENCOUNTER 2021-06-10 14:55 | Inpatient (IN) | payer MEDICARE, OTHER ==
[2021-06-11] MEDS ORDERED: Acetaminophen 325 MG TAB PO PRN (03:44)
[2021-06-11] MEDS ORDERED: Electrolyte Replacement Protocol 1 EACH FS SCH (04:15)
[2021-06-11] MEDS ORDERED: Electrolyte Replacement Protocol FS PRN (04:15)
[2021-06-11 05:34] LABS: Troponin I 0.027 ng/mL (< 0.028)
[2021-06-11] MEDS: Aspirin Chewable 81 MG TAB PO SCH (08:12)
[2021-06-11] MEDS: Multivit, Therapeutic 1 TAB PO SCH (08:12)
[2021-06-11] MEDS: metFORMIN 500 MG TAB PO SCH ×2 (08:12→21:46)
[2021-06-11] MEDS: Cholecalciferol 1,000 UNITS (25 MCG) TAB PO SCH (08:13)
[2021-06-11] MEDS: HYDROcodone/Acetaminophen 5/325 mg Tablet PO PRN (08:13)
[2021-06-11 13:19] LABS: Anion Gap 10 mmol/L (10-20); BUN (Urea Nitrogen) 13 mg/dL (8.4-25.7); Calc. Creatinine Clearance 67 mL/min (70-130); Carbon Dioxide 29 mmol/L (23-31); Chloride 104 mmol/L (98-107); Glucose 130 mg/dL (83-110); Potassium 4.4 mmol/L (3.5-5.1); Sodium 139 mmol/L (136-145)
[2021-06-11 13:25] LABS: Troponin I 0.018 ng/mL (< 0.028)
[2021-06-11] MEDS: cefTRIAXone\\ROCEPHIN 1 GM in Sodium Chloride 0.9% 100 ML IVPB SCH (13:36)
[2021-06-11] MEDS ORDERED: Atorvastatin Calcium 40 MG TAB PO SCH (21:00)
[2021-06-12 05:07] LABS: #Eosinphils 0.3 thou/uL (0.0-0.7); #Lymphocytes 1.6 thou/uL (1.20-3.40); #Monocytes 0.6 thou/uL (0.11-0.59); #Neutrophils 3.2 thou/uL (1.40-6.50); %Basophils 0.6 % (0.0-1.0); %Eosinophils 6.1 % (0.0-10.0); %Lymphocytes 27.9 % (21.0-51.0); %Monocytes 9.9 % (0.0-10.0); %Neutrophils 55.5 % (42.0-75.0); Hemoglobin 9.9 g/dL (14.0-18.0); Mean Corpuscular HGB CONC 32.9 g/dL (32.0-36.0); Mean Corpuscular Volume 91.1 fL (78.0-98.0); Mean Platelet Volume 10.8 fL (7.4-10.4); Platelet Count 198 thou/uL (130-400); RBC Distribution Width 13.4 % (11.5-14.5); White Blood Cell (WBC) Count 5.7 thou/uL (4.8-10.8)
[2021-06-12 05:14] LABS: Anion Gap 9 mmol/L (10-20); BUN (Urea Nitrogen) 12 mg/dL (8.4-25.7); Calc. Creatinine Clearance 67 mL/min (70-130); Calcium 8.8 mg/dL (7.8-10.44); Carbon Dioxide 29 mmol/L (23-31); Chloride 105 mmol/L (98-107); Glucose 114 mg/dL (83-110); Magnesium 1.7 mg/dL (1.6-2.6); Potassium 3.6 mmol/L (3.5-5.1); Sodium 139 mmol/L (136-145)
[2021-06-12] MEDS ORDERED: Magnesium 2 GM/50 ML 2 GM in Premix Bag 1 BAG IVPB SCH (06:30)
[2021-06-12] MEDS: Aspirin Chewable 81 MG TAB PO SCH (08:11)
[2021-06-12] MEDS: HYDROcodone/Acetaminophen 5/325 mg Tablet PO PRN (08:11)
[2021-06-12] MEDS: Cholecalciferol 1,000 UNITS (25 MCG) TAB PO SCH (08:11)
[2021-06-12] MEDS: Multivit, Therapeutic 1 TAB PO SCH (08:11)
[2021-06-12] MEDS: metFORMIN 500 MG TAB PO SCH ×2 (08:12→09:53)
[2021-06-12] MEDS: cefTRIAXone\\ROCEPHIN 1 GM in Sodium Chloride 0.9% 100 ML IVPB SCH (13:24)
[2021-06-12 16:03] VITALS: BP 148/68; TEMP 97.5
== END 2021-06-12 18:39 | disposition home or self-care (01) | DRG 552 ==
LOC: 2NO 16:57 → OBSVTOIN 06-11 22:33
PROVIDERS: ADMIT Internal Medicine; ATTEND Family Medicine
DX: S22.089A Unspecified fracture of T11-T12 vertebra, initial encounter for closed fracture (principal); E11.9 Type 2 diabetes mellitus without complications; I10 Essential (primary) hypertension; N40.0 Benign prostatic hyperplasia without lower urinary tract symptoms; E78.5 Hyperlipidemia, unspecified; F17.220 Nicotine dependence, chewing tobacco, uncomplicated; N30.90 Cystitis, unspecified without hematuria; E83.42 Hypomagnesemia; X58.XXXA Exposure to other specified factors, initial encounter; K21.9 Gastro-esophageal reflux disease without esophagitis; I08.1 Rheumatic disorders of both mitral and tricuspid valves; Z88.0 Allergy status to penicillin; Z79.84 Long term (current) use of oral hypoglycemic drugs; Z79.82 Long term (current) use of aspirin; Z79.899 Other long term (current) drug therapy; Z86.73 Personal history of transient ischemic attack (TIA), and cerebral infarction without residual deficits; Z85.038 Personal history of other malignant neoplasm of large intestine; Z90.49 Acquired absence of other specified parts of digestive tract; R07.89 Other chest pain
CPT/HCPCS: 36415; 36416; 51736; 51798; 80048; 83735; 84484; 85025; 96374; 99213; G0378; G0463; J0696; J3475; J3490

== ENCOUNTER 2021-07-07 11:14 | Outpatient (CLI) | payer MEDICARE, OTHER | END 2021-07-07 11:15 | disposition home or self-care (01) | LOC: TBSIIMAG 11:14 | PROVIDERS: ATTEND Neurological Surgery | DX: S22.080A Wedge compression fracture of T11-T12 vertebra, initial encounter for closed fracture (principal) | CPT/HCPCS: 72072; 72100 ==

== ENCOUNTER 2021-07-25 00:52 | Observation (INO) | payer MEDICARE, OTHER ==
[2021-07-25] MEDS ORDERED: Ondansetron PF 4 MG/2 ML Vial IVP PRN (02:07)
[2021-07-25] MEDS ORDERED: Acetaminophen 325 MG TAB PO PRN (02:07)
[2021-07-25] MEDS ORDERED: Nitroglycerin 0.4 MG TAB (25 Tab Bottle) SL PRN (02:09)
[2021-07-25 02:23] VITALS: BMI 17.4
[2021-07-25 02:52] LABS: Troponin I Less than 0.010 ng/mL (< 0.028)
[2021-07-25] MEDS ORDERED: HumaLOG 300 UNITS/3 ML VIAL SC PRN ×2 (04:24)
[2021-07-25] MEDS ORDERED: Dextrose 50% Abboject 50 ML SYRINGE SLOW IVP PRN (04:24)
[2021-07-25] MEDS ORDERED: Dextrose 5% in Water 1,000 ML IV PRN (04:24)
[2021-07-25 05:28] LABS: #Eosinphils 0.3 thou/uL (0.0-0.7); #Lymphocytes 1.8 thou/uL (1.20-3.40); #Monocytes 0.4 thou/uL (0.11-0.59); #Neutrophils 2.8 thou/uL (1.40-6.50); %Basophils 0.8 % (0.0-1.0); %Eosinophils 5.8 % (0.0-10.0); %Lymphocytes 33.2 % (21.0-51.0); %Monocytes 8.2 % (0.0-10.0); Hemoglobin 11.1 g/dL (14.0-18.0); Mean Corpuscular HGB CONC 32.8 g/dL (32.0-36.0); Mean Corpuscular Hemoglobin 30.9 pg (27.0-31.0); Mean Corpuscular Volume 94.3 fL (78.0-98.0); Mean Platelet Volume 10.4 fL (7.4-10.4); Platelet Count 169 thou/uL (130-400); RBC Distribution Width 13.7 % (11.5-14.5); Red Blood Cell (RBC) Count 3.59 mill/uL (4.70-6.10); White Blood Cell (WBC) Count 5.3 thou/uL (4.8-10.8)
[2021-07-25 05:50] LABS: Anion Gap 10 mmol/L (10-20); BUN (Urea Nitrogen) 9 mg/dL (8.4-25.7); Calc. Creatinine Clearance 64 mL/min (70-130); Calcium 9.1 mg/dL (7.8-10.44); Carbon Dioxide 29 mmol/L (23-31); Chloride 102 mmol/L (98-107); Glucose 98 mg/dL (83-110); Potassium 3.9 mmol/L (3.5-5.1); Sodium 137 mmol/L (136-145)
[2021-07-25 06:47] LABS: Bacteria/HPF None Seen HPF (None Seen); Bilirubin Negative (Negative); Blood, Urine Negative (Negative); Clarity Clear (Clear); Glucose, Urine (Dipstick) Normal (Negative); Ketone, Urine Negative (Negative); Leukocyte Negative Leu/uL (Negative); Nitrite Negative (Negative); Protein, Urine (Dipstick) Negative (Neg-Trace); RBC/HPF 0-3 HPF (0-3); Specific Gravity, Urine 1.006 (1.002-1.036); Squamous Epithelial None Seen HPF (0-3); Urobilinogen Normal mg/dL (Less than 2); pH, Urine 7.5 (5.0-9.0)
[2021-07-25 07:02] LABS: Urine Culture Reflex Yes Yes
[2021-07-25] MEDS ORDERED: Atorvastatin Calcium 40 MG TAB PO SCH (09:00)
[2021-07-25] MEDS ORDERED: Non-Formulary Item 1 EACH (Omeprazole [Omeprazole] 40 MG Capsule.Dr) PO SCH (09:00)
[2021-07-25] MEDS ORDERED: Aspirin 81 mg Enteric Coated Tablet PO SCH (09:00)
[2021-07-25] MEDS ORDERED: Multivit, Therapeutic 1 TAB PO SCH (09:00)
[2021-07-25] MEDS ORDERED: Non-Formulary Item 1 EACH (Multivitamin [Multivitamin] 1 EACH Tablet) PO SCH (09:00)
[2021-07-25 12:36] VITALS: BP 124/65; TEMP 98.2
[2021-07-25 14:28] LABS: SARS-CoV-2 PCR by NAA Not Detected (NotDetected)
== END 2021-07-25 15:52 | disposition home or self-care (01) ==
LOC: 2SW 01:53
PROVIDERS: ADMIT Internal Medicine; ATTEND Internal Medicine
DX: R07.89 Other chest pain (principal); I10 Essential (primary) hypertension; E11.9 Type 2 diabetes mellitus without complications; N40.0 Benign prostatic hyperplasia without lower urinary tract symptoms; D64.89 Other specified anemias; I25.10 Atherosclerotic heart disease of native coronary artery without angina pectoris; K21.9 Gastro-esophageal reflux disease without esophagitis; Z20.822 Contact with and (suspected) exposure to COVID-19; Z85.038 Personal history of other malignant neoplasm of large intestine; Z88.0 Allergy status to penicillin; Z95.5 Presence of coronary angioplasty implant and graft; Z86.73 Personal history of transient ischemic attack (TIA), and cerebral infarction without residual deficits; Z98.890 Other specified postprocedural states; Z79.84 Long term (current) use of oral hypoglycemic drugs; Z79.82 Long term (current) use of aspirin; Z79.899 Other long term (current) drug therapy
CPT/HCPCS: 80048; 81001; 82962; 84484; 85025; 87086; U0003; U0005; 36415; 36416

== ENCOUNTER 2022-01-04 14:01 | Observation (INO) | payer MEDICARE, OTHER ==
[2022-01-04 16:39] VITALS: BMI 18.7
[2022-01-04] MEDS ORDERED: Dextrose 5% in Water 1,000 ML IV PRN (17:31)
[2022-01-04] MEDS ORDERED: Nitroglycerin 0.4 MG TAB (25 Tab Bottle) SL PRN (17:31)
[2022-01-04] MEDS ORDERED: HumaLOG 300 UNITS/3 ML VIAL SC PRN ×2 (17:31)
[2022-01-04] MEDS ORDERED: Dextrose 50% Abboject 50 ML SYRINGE SLOW IVP PRN (17:31)
[2022-01-04] MEDS ORDERED: Senokot S 8.6-50 MG TAB PO PRN (17:40)
[2022-01-04] MEDS ORDERED: Ondansetron ODT 4 MG TAB PO PRN (17:40)
[2022-01-04] MEDS ORDERED: Acetaminophen 325 MG TAB PO PRN (17:40)
[2022-01-04] MEDS ORDERED: Ondansetron PF 4 MG/2 ML Vial IVP PRN (17:40)
[2022-01-04] MEDS ORDERED: Nicotine 14 MG PATCH TD PRN (17:43)
[2022-01-04] MEDS: Sodium Chloride 0.9% 1,000 ML IV SCH (18:23)
[2022-01-04 18:24] LABS: #Basophils 0.1 thou/uL (0.0-0.2); #Eosinphils 0.2 thou/uL (0.0-0.7); #Lymphocytes 1.8 thou/uL (1.20-3.40); #Monocytes 0.6 thou/uL (0.11-0.59); #Neutrophils 3.9 thou/uL (1.40-6.50); %Basophils 0.8 % (0.0-1.0); %Eosinophils 2.9 % (0.0-10.0); %Lymphocytes 27.6 % (21.0-51.0); %Monocytes 9.1 % (0.0-10.0); %Neutrophils 59.7 % (42.0-75.0); Hemoglobin 10.8 g/dL (14.0-18.0); Mean Corpuscular HGB CONC 31.8 g/dL (32.0-36.0); Mean Corpuscular Hemoglobin 31.1 pg (27.0-31.0); Mean Corpuscular Volume 97.7 fL (78.0-98.0); Mean Platelet Volume 9.9 fL (7.4-10.4); Platelet Count 194 thou/uL (130-400); RBC Distribution Width 11.8 % (11.5-14.5); Red Blood Cell (RBC) Count 3.47 mill/uL (4.70-6.10); White Blood Cell (WBC) Count 6.5 thou/uL (4.8-10.8)
[2022-01-04 18:55] LABS: Troponin I Less than 0.010 ng/mL (< 0.028)
[2022-01-04 18:57] LABS: Anion Gap 15 mmol/L (10-20); BUN (Urea Nitrogen) 11 mg/dL (8.4-25.7); Calc. Creatinine Clearance 66 mL/min (70-130); Calcium 8.9 mg/dL (7.8-10.44); Carbon Dioxide 26 mmol/L (23-31); Chloride 103 mmol/L (98-107); Glucose 87 mg/dL (83-110); Potassium 4.5 mmol/L (3.5-5.1); Sodium 139 mmol/L (136-145)
[2022-01-04 19:08] LABS: SARS-CoV-2 NAA Rapid Test Not Detected (NotDetected)
[2022-01-04] MEDS ORDERED: Atorvastatin Calcium 40 MG TAB PO SCH (21:00)
[2022-01-04 21:17] LABS: Troponin I Less than 0.010 ng/mL (< 0.028)
[2022-01-05 04:00] LABS: Bacteria/HPF None Seen HPF (None Seen); Bilirubin Negative (Negative); Blood, Urine Negative (Negative); Clarity Clear (Clear); Glucose, Urine (Dipstick) Normal (Negative); Ketone, Urine Negative (Negative); Leukocyte Negative Leu/uL (Negative); Nitrite Negative (Negative); Protein, Urine (Dipstick) Negative (Neg-Trace); RBC/HPF 0-3 HPF (0-3); Specific Gravity, Urine 1.009 (1.002-1.036); Squamous Epithelial None Seen HPF (0-3); Urobilinogen Normal mg/dL (Less than 2); WBC/HPF 0-3 HPF (0-3)
[2022-01-05 05:35] LABS: #Eosinphils 0.3 thou/uL (0.0-0.7); #Lymphocytes 1.6 thou/uL (1.20-3.40); #Monocytes 0.6 thou/uL (0.11-0.59); #Neutrophils 3.8 thou/uL (1.40-6.50); %Basophils 0.5 % (0.0-1.0); %Eosinophils 4.2 % (0.0-10.0); %Lymphocytes 25.5 % (21.0-51.0); %Monocytes 8.8 % (0.0-10.0); Hemoglobin 10.5 g/dL (14.0-18.0); Mean Corpuscular HGB CONC 33.7 g/dL (32.0-36.0); Mean Corpuscular Hemoglobin 32.5 pg (27.0-31.0); Mean Corpuscular Volume 96.3 fL (78.0-98.0); Platelet Count 189 thou/uL (130-400); RBC Distribution Width 11.7 % (11.5-14.5); Red Blood Cell (RBC) Count 3.25 mill/uL (4.70-6.10); White Blood Cell (WBC) Count 6.3 thou/uL (4.8-10.8)
[2022-01-05 05:57] LABS: Anion Gap 10 mmol/L (10-20); BUN (Urea Nitrogen) 12 mg/dL (8.4-25.7); Calc. Creatinine Clearance 64 mL/min (70-130); Calcium 8.5 mg/dL (7.8-10.44); Carbon Dioxide 28 mmol/L (23-31); Chloride 106 mmol/L (98-107); Glucose 86 mg/dL (83-110); Sodium 140 mmol/L (136-145)
[2022-01-05] MEDS: Sodium Chloride 0.9% 1,000 ML IV SCH (08:41)
[2022-01-05] MEDS ORDERED: Cholecalciferol 1,000 UNITS (25 MCG) TAB PO SCH (09:00)
[2022-01-05] MEDS ORDERED: Multivit, Therapeutic 1 TAB PO SCH (09:00)
[2022-01-05] MEDS ORDERED: Aspirin 81 mg Enteric Coated Tablet PO SCH (09:00)
[2022-01-05] MEDS ORDERED: Iopamidol 370 76% 100 ML VIAL ONE (09:11)
[2022-01-05] MEDS ORDERED: Lidocaine 2% Viscous Solution 20 ML, Aluminum & Magnesium Hydroxide 30 ML, Donnatal Eli... SSW SCH (14:00)
[2022-01-05 15:13] VITALS: BP 147/62; TEMP 97.7
[2022-01-05] MEDS ORDERED: Sodium Chloride 0.9% 1,000 ML IV SCH ×2 (17:00→18:00)
== END 2022-01-05 19:19 | disposition home or self-care (01) ==
LOC: 2SW 15:47
PROVIDERS: ADMIT Hospitalist; ATTEND Hospitalist
DX: R07.9 Chest pain, unspecified (principal); R10.13 Epigastric pain; D64.9 Anemia, unspecified; I10 Essential (primary) hypertension; E11.9 Type 2 diabetes mellitus without complications; E78.5 Hyperlipidemia, unspecified; F17.220 Nicotine dependence, chewing tobacco, uncomplicated; K21.9 Gastro-esophageal reflux disease without esophagitis; N40.0 Benign prostatic hyperplasia without lower urinary tract symptoms; E27.8 Other specified disorders of adrenal gland; Z85.038 Personal history of other malignant neoplasm of large intestine; Z86.73 Personal history of transient ischemic attack (TIA), and cerebral infarction without residual deficits; Z79.82 Long term (current) use of aspirin; Z79.84 Long term (current) use of oral hypoglycemic drugs; Z79.899 Other long term (current) drug therapy; Z88.0 Allergy status to penicillin; Z90.49 Acquired absence of other specified parts of digestive tract; Z20.822 Contact with and (suspected) exposure to COVID-19
CPT/HCPCS: 74177; 80048 ×2; 81001; 82150; 82962 ×2; 83690; 84484; 85025 ×2; 97139 ×3; 97535; G0378 ×2; U0002; 36415; 36416; J7050; Q9967

== ENCOUNTER 2022-11-09 14:15 | Observation (INO) | payer MEDICARE, OTHER ==
[~2022-11-09 14:15] MED LIST: Iopamidol-370 76% 500 ML 1 ML ONE
[2022-11-09 16:19] LABS: Bacteria/HPF None Seen HPF (None Seen); Bilirubin Negative (Negative); Blood, Urine Trace (Negative); Clarity Clear (Clear); Glucose, Urine (Dipstick) Normal (Negative); Ketone, Urine Negative (Negative); Leukocyte 25 Leu/uL (Negative); Nitrite Negative (Negative); Protein, Urine (Dipstick) 70 mg/dL (Neg-Trace); RBC/HPF 0-3 HPF (0-3); Specific Gravity, Urine 1.027 (1.002-1.036); Squamous Epithelial None Seen HPF (0-3); Urobilinogen Normal mg/dL (Less than 2)
[2022-11-09 16:23] LABS: #Eosinphils 0.1 thou/uL (0.0-0.7); #Lymphocytes 1.1 thou/uL (1.20-3.40); #Monocytes 0.5 thou/uL (0.11-0.59); #Neutrophils 4.8 thou/uL (1.40-6.50); %Basophils 0.2 % (0.0-1.0); %Eosinophils 1.2 % (0.0-10.0); %Lymphocytes 17.1 % (21.0-51.0); %Neutrophils 74.5 % (42.0-75.0); Mean Corpuscular HGB CONC 32.2 g/dL (32.0-36.0); Mean Corpuscular Volume 96.3 fl (78.0-98.0); Mean Platelet Volume 10.5 fL (7.4-10.4); Platelet Count 182 10x3/uL (130-400); RBC Distribution Width 11.9 % (11.5-14.5); Red Blood Cell (RBC) Count 3.54 mill/uL (4.70-6.10); White Blood Cell (WBC) Count 6.5 10x3/uL (4.8-10.8)
[2022-11-09 16:26] LABS: ALT (SGPT) 12 U/L (8-55); AST (SGOT) 17 U/L (5-34); Albumin 3.7 g/dL (3.4-4.8); Alkaline Phosphatase 140 U/L (40-110); Anion Gap 15 mmol/L (10-20); BUN (Urea Nitrogen) 26 mg/dL (8.4-25.7); Bilirubin, Total 0.5 mg/dL (0.2-1.2); Calc. Creatinine Clearance 0 mL/min (70-130); Calcium 9.1 mg/dL (7.8-10.44); Carbon Dioxide 22 mmol/L (23-31); Chloride 105 mmol/L (98-107); Estimated GFR 88; Globulin 2.5 g/dL (2.4-3.5); Glucose 93 mg/dL (83-110); Lipase 63 U/L (8-78); Potassium 4.8 mmol/L (3.5-5.1); Protein, Total 6.2 g/dL (5.8-8.1); Sodium 137 mmol/L (136-145)
[2022-11-09] MEDS ORDERED: cefTRIAXone\\ROCEPHIN 2 GM VIAL ONE (17:24)
[2022-11-09] MEDS ORDERED: Aspirin Chewable 81 MG TAB ONE (17:24)
[2022-11-09 18:13] LABS: Troponin I 0.015 ng/mL (< 0.028)
[2022-11-09] MEDS ORDERED: Acetaminophen 325 MG TAB PO PRN (19:52)
[2022-11-09] MEDS ORDERED: Dextrose 5% in Water 1,000 ML IV PRN (19:52)
[2022-11-09] MEDS ORDERED: Ondansetron PF 4 MG/2 ML Vial IVP PRN (19:52)
[2022-11-09] MEDS ORDERED: HumaLOG 300 UNITS/3 ML VIAL SC PRN (19:52)
[2022-11-09] MEDS ORDERED: Dextrose 50% Abboject 50 ML SYRINGE SLOW IVP PRN (19:52)
[2022-11-09] MEDS ORDERED: HYDROcodone/Acetaminophen 5/325 mg Tablet PO PRN ×2 (19:52)
[2022-11-09] MEDS ORDERED: Nitroglycerin 0.4 MG TAB (25 Tab Bottle) SL PRN (19:52)
[2022-11-09 19:54] VITALS: BMI 18.2
[2022-11-09] MEDS: Sucralfate 1 GM TAB PO SCH (21:32)
[2022-11-09 21:48] LABS: Troponin I 0.018 ng/mL (< 0.028)
[2022-11-10 05:10] LABS: #Eosinphils 0.2 thou/uL (0.0-0.7); #Lymphocytes 1.2 thou/uL (1.20-3.40); #Monocytes 0.7 thou/uL (0.11-0.59); %Basophils 0.1 % (0.0-1.0); %Eosinophils 3.5 % (0.0-10.0); %Lymphocytes 20.1 % (21.0-51.0); %Monocytes 10.5 % (0.0-10.0); %Neutrophils 65.8 % (42.0-75.0); Hemoglobin 10.1 g/dL (14.0-18.0); Mean Corpuscular HGB CONC 32.9 g/dL (32.0-36.0); Mean Corpuscular Hemoglobin 31.2 pg (27.0-31.0); Mean Corpuscular Volume 94.8 fl (78.0-98.0); Mean Platelet Volume 10.9 fL (7.4-10.4); Platelet Count 148 10x3/uL (130-400); RBC Distribution Width 11.8 % (11.5-14.5); Red Blood Cell (RBC) Count 3.23 mill/uL (4.70-6.10); White Blood Cell (WBC) Count 6.1 10x3/uL (4.8-10.8)
[2022-11-10 05:30] LABS: Anion Gap 9 mmol/L (10-20); BUN (Urea Nitrogen) 16 mg/dL (8.4-25.7); Calc. Creatinine Clearance 51 mL/min (70-130); Calcium 8.1 mg/dL (7.8-10.44); Carbon Dioxide 24 mmol/L (23-31); Chloride 105 mmol/L (98-107); Estimated GFR 88; Glucose 123 mg/dL (83-110); Magnesium 1.5 mg/dL (1.6-2.6); Potassium 3.8 mmol/L (3.5-5.1); Sodium 134 mmol/L (136-145)
[2022-11-10] MEDS ORDERED: metFORMIN XR 500 MG TAB PO SCH (08:00)
[2022-11-10] MEDS ORDERED: Cholecalciferol 1,000 UNITS (25 MCG) TAB PO SCH (09:00)
[2022-11-10] MEDS ORDERED: Aspirin 81 mg Enteric Coated Tablet PO SCH (09:00)
[2022-11-10] MEDS ORDERED: Multivit, Therapeutic 1 TAB PO SCH (09:00)
[2022-11-10] MEDS ORDERED: Atorvastatin Calcium 40 MG TAB PO SCH (09:00)
[2022-11-10] MEDS ORDERED: Mag-Al 1200 mg/1200 mg/30 ML UDCUP PO SCH (09:45)
[2022-11-10] MEDS: Sucralfate 1 GM TAB PO SCH ×2 (09:51→14:08)
[2022-11-10 16:17] VITALS: TEMP 97.3
[2022-11-10] MEDS ORDERED: cefTRIAXone\\ROCEPHIN 1 GM in Sodium Chloride 0.9% 100 ML IVPB SCH (17:00)
[2022-11-10 18:57] VITALS: BP 114/58
== END 2022-11-10 17:38 | disposition home or self-care (01) ==
LOC: ERS 14:15 → ERHOLD 17:15 → 2SW 19:30
PROVIDERS: ADMIT Internal Medicine; ATTEND Internal Medicine
DX: R07.89 Other chest pain (principal); N40.0 Benign prostatic hyperplasia without lower urinary tract symptoms; N39.0 Urinary tract infection, site not specified; I10 Essential (primary) hypertension; E11.9 Type 2 diabetes mellitus without complications; E78.5 Hyperlipidemia, unspecified; K21.9 Gastro-esophageal reflux disease without esophagitis; I34.0 Nonrheumatic mitral (valve) insufficiency; I47.1 Supraventricular tachycardia; R29.6 Repeated falls; Z85.038 Personal history of other malignant neoplasm of large intestine; Z86.73 Personal history of transient ischemic attack (TIA), and cerebral infarction without residual deficits; Z88.0 Allergy status to penicillin; Z20.822 Contact with and (suspected) exposure to COVID-19
CPT/HCPCS: 71275; 74174; 80048; 80053; 82962 ×2; 83690; 83735; 83880; 84484 ×2; 85025 ×2; 87086; 93005 ×2; 93306; 96374; 97116; 99285; G0378 ×3; U0003; U0005; 36415; 36416; 81003; 81015; 93010; J0696; Q9967

== ENCOUNTER 2023-01-30 05:49 | Observation (INO) | payer MEDICARE, OTHER ==
[2023-01-30 06:57] VITALS: BMI 17.2
[2023-01-30] MEDS ORDERED: Acetaminophen 325 MG TAB PO PRN (09:49)
[2023-01-30] MEDS ORDERED: HYDROcodone/Acetaminophen 5/325 mg Tablet PO PRN ×2 (09:49)
[2023-01-30] MEDS ORDERED: Bisacodyl 5 MG TAB PO PRN (09:49)
[2023-01-30] MEDS ORDERED: Ondansetron PF 4 MG/2 ML Vial IVP PRN (09:49)
[2023-01-30] MEDS ORDERED: Dextrose 5% in Water 1,000 ML IV PRN (09:58)
[2023-01-30] MEDS ORDERED: HumaLOG 300 UNITS/3 ML VIAL SC PRN (09:58)
[2023-01-30] MEDS ORDERED: Glucagon 1 MG/ML KIT IM PRN (09:58)
[2023-01-30] MEDS ORDERED: Dextrose 50% Abboject 50 ML SYRINGE SLOW IVP PRN (09:58)
[2023-01-30] MEDS ORDERED: Sodium Chloride 0.9% 1,000 ML IV SCH (10:00)
[2023-01-30] MEDS ORDERED: Lisinopril 2.5 MG TAB PO SCH (10:13)
[2023-01-30] MEDS ORDERED: Lisinopril 10 MG TAB PO SCH (10:30)
[2023-01-30] MEDS ORDERED: Polyethylene Glycol 3350 17 GM Packet PO SCH (10:30)
[2023-01-30] MEDS: Sodium Chloride 0.9% 1,000 ML IV SCH ×2 (10:34→20:50)
[2023-01-30] MEDS: Sucralfate 1 GM TAB PO SCH ×3 (13:20→21:46)
[2023-01-31 05:02] LABS: #Monocytes 0.8 thou/uL (0.11-0.59); #Neutrophils 5.8 thou/uL (1.40-6.50); %Basophils 0.1 % (0.0-1.0); %Lymphocytes 15.3 % (21.0-51.0); Hemoglobin 8.8 g/dL (14.0-18.0); Mean Corpuscular HGB CONC 31.3 g/dL (32.0-36.0); Mean Corpuscular Volume 92.7 fl (78.0-98.0); Mean Platelet Volume 12.6 fL (7.4-10.4); Platelet Count 193 10x3/uL (130-400); RBC Distribution Width 13.4 % (11.5-14.5); Red Blood Cell (RBC) Count 3.03 mill/uL (4.70-6.10); White Blood Cell (WBC) Count 7.8 10x3/uL (4.8-10.8)
[2023-01-31 05:27] LABS: Anion Gap 9 mmol/L (10-20); BUN (Urea Nitrogen) 18 mg/dL (8.4-25.7); Calc. Creatinine Clearance 56 mL/min (70-130); Calcium 8.1 mg/dL (7.8-10.44); Carbon Dioxide 24 mmol/L (23-31); Chloride 103 mmol/L (98-107); Estimated GFR 91; Glucose 137 mg/dL (83-110); Potassium 3.8 mmol/L (3.5-5.1); Sodium 132 mmol/L (136-145)
[2023-01-31] MEDS ORDERED: Sodium Chloride 0.9% 1,000 ML IV SCH (06:30)
[2023-01-31] MEDS ORDERED: Iron, Sodium Ferric Gluconate 250 MG in Sodium Chloride 0.9% 250 ML 250 ML IVPB SCH (06:30)
[2023-01-31] MEDS: Sucralfate 1 GM TAB PO SCH (08:54)
[2023-01-31] MEDS ORDERED: Polyethylene Glycol 3350 17 GM Packet PO SCH (09:00)
[2023-01-31] MEDS ORDERED: Lisinopril 10 MG TAB PO SCH (09:00)
[2023-01-31] MEDS ORDERED: Non-Formulary Item 1 EACH (Cyanocobalamin (Vitamin B-12) [Vitamin B-12] 1,000 MCG Capsule PO SCH (09:00)
[2023-01-31] MEDS ORDERED: Cholecalciferol 1,000 UNITS (25 MCG) TAB PO SCH ×3 (09:00)
[2023-01-31] MEDS ORDERED: Aspirin 81 mg Enteric Coated Tablet PO SCH (09:00)
[2023-01-31] MEDS ORDERED: Cyanocobalamin (Vitamin B-12) 1,000 MCG TAB PO SCH (09:00)
[2023-01-31] MEDS ORDERED: DILTIAZEM HCL 120 MG PO SCH (09:00)
[2023-01-31] MEDS ORDERED: Spironolactone 25 MG TAB PO SCH (09:00)
[2023-01-31] MEDS ORDERED: Lisinopril 2.5 MG TAB PO SCH (09:00)
[2023-01-31] MEDS ORDERED: Non-Formulary Item 1 EACH (Multivitamin [Multivitamin] 1 EACH Tablet) PO SCH (09:00)
[2023-01-31] MEDS ORDERED: Atorvastatin Calcium 40 MG TAB PO SCH (09:00)
[2023-01-31] MEDS ORDERED: Multivit, Therapeutic 1 TAB PO SCH (09:00)
[2023-01-31] MEDS ORDERED: Non-Formulary Item 1 EACH (Cholecalciferol (Vitamin D3) [Vitamin D3] 2,000 UNIT Capsule) PO SCH (09:00)
[2023-01-31 12:29] VITALS: BP 148/69; TEMP 98.5
== END 2023-01-31 14:05 | disposition home or self-care (01) ==
LOC: 2SW 06:51
PROVIDERS: ADMIT Hospitalist; ATTEND Hospitalist
DX: R07.9 Chest pain, unspecified (principal); R10.10 Upper abdominal pain, unspecified; R11.2 Nausea with vomiting, unspecified; K59.01 Slow transit constipation; K21.9 Gastro-esophageal reflux disease without esophagitis; I10 Essential (primary) hypertension; R33.9 Retention of urine, unspecified; E78.5 Hyperlipidemia, unspecified; E11.10 Type 2 diabetes mellitus with ketoacidosis without coma; D50.9 Iron deficiency anemia, unspecified; Z85.038 Personal history of other malignant neoplasm of large intestine; Z86.73 Personal history of transient ischemic attack (TIA), and cerebral infarction without residual deficits; Z79.82 Long term (current) use of aspirin; Z79.899 Other long term (current) drug therapy; Z88.0 Allergy status to penicillin
CPT/HCPCS: 80048; 82728; 82962 ×2; 85025; 93005; 96372; 96374; 96375; 97530; G0378 ×2; 36415; 36416; 51798; 93010; J1650; J2405; J2916; J7050